=== PATIENT | male | born 1970 | race Caucasian/White ===

== ENCOUNTER 2018-02-15 08:46 | Emergency (ER) | payer MEDICARE, OTHER ==
[~2018-02-15] VITALS: Ht 165.1 cm; Wt 75.0 kg
[2018-02-15 08:50] VITALS: BP 104/64; PULSE 88; RESP 16; TEMP 98; O2SAT 98
[2018-02-15] MEDS ORDERED: IBUPROFEN 800 MG TAB PO ONE (09:15)
--- NOTE | 2018-02-15 09:52 | PD ---
HPI Chief Complaint: Musculoskeletal Complaint Time Seen by Provider: 08:58 Travel History International Travel<30 days: No Contact w/Intl Traveler<30days: No Traveled to known affect area: No History of Present Illness HPI Patient is a 47-year-old male presenting to the emergency department for evaluation of bilateral ankle pain. Patient states he has been walking a lot. Patient is currently undomiciled. He denies any injury or trauma. He rates his pain a 9 out of 10, states aching and throbbing. He denies any fever, chills, nausea, vomiting. Symptom onset was gradual, symptoms are moderate in nature. Patient denies any alleviating factors. Patient presented to the emergency department via EMS. He states he cannot walk however he was witnessed walking approximately 10 feet in triage. [facility] Past Medical History Medical History: Denies Significant Hx Influenza Vaccination: No Past Surgical History Surgical History: No Previous Surgery Social History Alcohol Use: Yes (occas) Tobacco Use: Yes Substance Use: Yes (crack cocaine) Allergies-Medications (Allergen,Severity, Reaction): Coded Allergies: No Known Allergies (Verified Allergy, Severe, 02/15/18) Reported Meds & Prescriptions Reported Meds & Active Scripts Active No Active Prescriptions or Reported Medications Review of Systems Except as stated in HPI: all other systems reviewed are Neg Musculoskeletal: Positive: Myalgias, Arthralgias, Pain Physical Exam Narrative GENERAL: Well-developed, well-nourished, alert male. Presenting in no acute distress. SKIN: Warm and dry. HEAD: Normocephalic. EYES: No scleral icterus. No injection or drainage. NECK: Supple, trachea midline. No JVD or lymphadenopathy. CARDIOVASCULAR: Regular rate and rhythm without murmurs, gallops, or rubs. RESPIRATORY: Breath sounds equal bilaterally. No accessory muscle use. GASTROINTESTINAL: Abdomen soft, non-tender, nondistended. MUSCULOSKELETAL: No cyanosis, mild edema to bilateral ankles, no obvious deformity. No crepitus noted. No erythema or warmth noted. 2+ dorsalis pedal pulses bilaterally. BACK: Nontender without obvious deformity. No CVA tenderness. Data Data Last Documented VS Vital Signs Date Time Temp Pulse Resp B/P (MAP) Pulse Ox O2 Delivery O2 Flow Rate FiO2 02/15/18 10:45 17 02/15/18 08:50 98.0 88 104/64 (77) 98 Orders Orders Ibuprofen (Motrin) (02/15/18 09:15) Ice/Cold Pack (02/15/18 09:13) MDM Medical Decision Making Medical Screen Exam Complete: Yes Emergency Medical Condition: Yes Interpretation(s) Vital Signs Date Time Temp Pulse Resp B/P (MAP) Pulse Ox O2 Delivery O2 Flow Rate FiO2 02/15/18 08:50 98.0 88 16 104/64 (77) 98 Differential Diagnosis Myalgia versus arthralgia versus overuse versus arthritis versus other Narrative Course Patient is well-appearing 47-year-old male presented to the emergency department for evaluation of bilateral ankle pain. Patient denies any injury or trauma other than overuse because of walking. Patient's vital signs are stable. Patient was given ibuprofen and ice packs were placed to his ankles bilaterally. Patient will be allowed to rest, will reassess. Upon reassessment patient continues to report pain, he states he cannot walk and needs to be admitted to the hospital. Patient was advised that he does not have an acute process that would require admission to the hospital. He then stated "what would get me admitted? What if I was suicidal". Patient appears to be malingering. Patient was also seen and evaluated by my attending physician. Patient was not encouraged to rest, ice, elevate extremities. He was encouraged to obtain [id number] ibuprofen or acetaminophen. He was advised that it may be cheaper at the [facility]. Patient's ankles were wrapped with an Cornel wrap. Patient will be discharged, he was given a list of local resources/community shelters. He was encouraged to return to emergency department for any new or worsening symptoms. Patient stable for discharge. Diagnosis Primary Impression: Bilateral ankle pain Qualified Codes: M25.571 - Pain in right ankle and joints of right foot; M25.572 - Pain in left ankle and joints of left foot Additional Impression: Malingering Referrals: [facility] Patient Instructions: General Instructions, Musculoskeletal Pain (ED) Additional Instructions: Follow-up at the [facility] clinic Take ibuprofen or acetaminophen as needed and as directed for pain, this may be cheaper to purchase at the [employer] store Rest, ice, elevate extremities Return to emergency department for any new worsening symptoms Med/Other Pt SpecificInfo: No Meds Exist/No RX given Scripts No Active Prescriptions or Reported Meds Disposition: DISCHARGE HOME Condition: Stable Apryl Díaz Feb 15, 2018 09:52
[2018-02-15 10:45] VITALS: RESP 17
--- NOTE | 2018-02-15 11:09 | PD ---
Data Data Last Documented VS Vital Signs Date Time Temp Pulse Resp B/P (MAP) Pulse Ox O2 Delivery O2 Flow Rate FiO2 02/15/18 10:45 17 02/15/18 08:50 98.0 88 104/64 (77) 98 Orders Orders Ibuprofen (Motrin) (02/15/18 09:15) Ice/Cold Pack (02/15/18 09:13) MDM Supervised Visit with TANA: Yes Narrative Course 47-year-old male presents emerged department with bilateral foot and ankle pain after walking for a long time. He states that his feet hurt more and he cannot walk. I was asked to see him because he was refusing to leave after discharge. He states he has been in the area for several months, homeless, cannot describe exactly where he has been staying but mostly just sort of on the streets. Is a little bit of swelling to the right ankle. Left ankle is normal to appearance. Both ankles are stable. No trauma. I offered to give her information for shelters, and wrap both ankles to help with stability. Patient asking to be admitted which I told her we could not do for this indication. He was pretty open about looking for reasons to be admitted. He states "what if I am suicidal, because I am suicidal ". "What if I kill myself". Patient certainly has some pain and some swelling in his ankles. Is complicated because he is homeless. Nonetheless, there is no indications for hospitalization or admission. Is clearly malingering at this point. After my assessment, I recommend the patient be discharged. We wrapped his ankles, will provide him information for shelters. Diagnosis Primary Impression: Malingering Additional Impression: Ankle pain Additional Instruction: Use acetaminophen or ibuprofen as needed for pain. Keep legs elevated as needed for comfort. Use Cornel wrap as needed for comfort. Med/Other Pt SpecificInfo: No Change to Meds Scripts No Active Prescriptions or Reported Meds Disposition: 01 DISCHARGE HOME Condition: Stable Kelby Camarena MD Feb 15, 2018 11:09
== END 2018-02-15 11:21 | disposition home or self-care (01) ==
LOC: NEPD 08:46
DX: M25.571 Pain in right ankle and joints of right foot (principal); M25.572 Pain in left ankle and joints of left foot; Z76.5 Malingerer [conscious simulation]; Z72.0 Tobacco use
CPT/HCPCS: 99283